=== PATIENT | male | born 1950 | race Caucasian/White ===

== ENCOUNTER → 2016-09-10 | Outpatient (CLI) | payer MEDICARE | END | disposition home or self-care (01) | LOC: PCVCCLINIC 13:00 | PROVIDERS: ATTEND Internal Medicine Cardiovascular Disease | DX: I25.10 Atherosclerotic heart disease of native coronary artery without angina pectoris (principal); I42.9 Cardiomyopathy, unspecified; E78.00 Pure hypercholesterolemia, unspecified; I10 Essential (primary) hypertension; E11.9 Type 2 diabetes mellitus without complications; I45.10 Unspecified right bundle-branch block; Z95.1 Presence of aortocoronary bypass graft | CPT/HCPCS: 80061; 93005; G0463 ==

== ENCOUNTER → 2017-04-12 | Outpatient (CLI) | payer MEDICARE ==
[~2017-04-12] MED LIST: REGADENOSON 0.4 MG/5 ML DISP.SYRIN. IV ONE
--- NOTE | 2017-04-12 10:19 | PCVCIMAG ---
APPROVED REPORT Study performed: 04/12/2017 07:39:13 EXAM: Comprehensive 2D, Doppler, and color-flow Echocardiogram Patient Location: Echo lab Room #: 2Status: routine BSA: 2.06 HR: 52 bpmBP: 116/66 mmHg Rhythm: Bradycardia Other Information Study Quality: Good Risk Factors: Cardiac Risk Factors: HTN, Diabetes (insulin) Indications Diabetes Bradycardia Dyspnea CAD Cardiomyopathy HX Stents, FL 2D Dimensions LVEF(%): 44.79 (>50%) IVSd: 8.46 (7-11mm)LVOT Diam: 22.70 (18-24mm) LVDd: 60.73 mm PWd: 7.63 (7-11mm)Ascending Ao: 31.09 (22-36mm) LVDs: 46.97 (25-40mm) Left Atrium: 49.91 (27-40mm) Aortic Root: 26.06 mm LV Single Plane 4CH: 45.94 % LV Single Plane 2CH: 44.53 %Renae's LVEF: 45.24 % Biplane EF: 46.6 % Volumes Left Atrial Volume (Systole) Single Plane 4CH: 96.87 mLSingle Plane 2CH: 94.54 mL Biplane LA Volume: 101.00 mLLA ESV Index: 49.00 mL/m2 Aortic Valve AoV Peak Donta.: 1.37 m/s AO Peak Gr.: 7.56 mmHgLVOT Max P.15 mmHg LVOT Max V: 0.73 m/s ISELA Vmax: 2.16 cm2 AI Vmax: 3.65 m/s AI [place]: 2.01 m/s2 AI PHT: 528.43 ms Mitral Valve E/A Ratio: 5.9 MV E Max Donta.: 1.23 m/s MV A Donta.: 0.21 m/s MV PHT: 53.62 ms MVA (PHT): 4.10 cm2 IVRT: 73.82 ms TDI E/Lateral E': 11.18E/Medial E': 17.57 Medial E' Donta.: 0.07 m/s Lateral E' Donta.: 0.11 m/s Pulmonary Valve PV Peak Donta.: 0.92 m/sPV Peak Gr.: 3.36 mmHg Pulmonary Vein P Vein S: 0.23 m/sP Vein A: 0.20 m/s P Vein D: 1.06 m/sP Vein A Dur.: 115.3 msec P Vein S/D Ratio: 0.22 Tricuspid Valve TR Peak Donta.: 3.21 m/s TR Peak Gr.: 41.28 mmHg TV Vmax: 0.69 m/sPA Pressure: 51.00 mmHg Left Ventricle Left ventricle is mildly dilated. There is global hypokinesis of the left ventricle. Inferoseptal severe hypokinesis There is normal left ventricular wall thickness. Left ventricular systolic function is mildly decreased.Distal septum apex severly hypo LVEF is 45-50%. Grade IV - fixed restrictive diastolic dysfunction. Right Ventricle The right ventricle is normal size. The right ventricular systolic function is normal. Atria Left atrium is moderately dilated. The right atrium size is normal. Aortic Valve The aortic valve is normal in structure. Mild aortic regurgitation. There is no aortic valvular stenosis. Mitral Valve The mitral valve is normal in structure. Mild to moderate mitral regurgitation. No evidence of mitral valve stenosis. Tricuspid Valve The tricuspid valve is normal in structure. Moderate tricuspid regurgitation with a PA pressure of 51mmHg. Moderate pulmonary hypertension. Pulmonic Valve The pulmonary valve is normal in structure. There is no pulmonic valvular regurgitation. Great Vessels The aortic root is normal in size. The ascending aorta is normal in size. IVC is normal in size and collapses <50% with inspiration. Pericardium There is no pericardial effusion. There is no pleural effusion. <Conclusion> Left ventricle is mildly dilated. Left ventricular systolic function is mildly decreased.Distal septum apex severly hypo LVEF is 45-50%. Grade IV - fixed restrictive diastolic dysfunction. The right ventricle is normal size. Left atrium is moderately dilated. Mild aortic regurgitation. Mild to moderate mitral regurgitation. Moderate tricuspid regurgitation with a PA pressure of 51mmHg. Moderate pulmonary hypertension. There is no pericardial effusion.
--- NOTE | 2017-04-12 15:18 | PCVCIMAG ---
APPROVED REPORT Exam: Nuclear Stress Test Indication: CAD Patient Location: Out-Patient Stress Nurse: Pauline Henderson RN, Jess Gaspar RN [place] Tech:Zahraa Rita [employer] Ht: 5 ft 9 in Wt: 180 lbs BSA: 1.98 m2 HR: 55 bpm BP: 176/79 mmHg BMI: 26.5 Rhythm: Sinus Bradycardia, Bifascicular Block Medical History Medical History: HTN, Hyperlipidemia, Age, CAD, Diabetes Medications: Lasix, Lantus, Humalog, Losartan, Actos, Pravastatin, Propranolol (last dose 12 hours) Allergies: Lefazolin, Erythromycin, PCN Previous Cardiac Procedures: CABG Pretest Chest Pain Characteristics: No chest pain Exercise History: Indeterminate NM EXAM: Myocardial Perfusion REST/STRESS Imaging Protocol: Rest Tc-99m/Stress Tc-99m 1 day Resting Data Rest SPECT myocardial perfusion imaging was performed in supine position 45 minutes following the intravenous injection of 11.3 mCi of Tc-99m Sestamibi. Time of rest injection: 829 Date: 04/12/2017 Administration Route: IV Administration Site: Right AC Pharmacologic Stress Pharmacologic stress test was performed by injecting Regadenoson 0.4 mg IV push followed by the intravenous injection of 35.5 mCi of Tc-99m Sestamibi. Time of stress injection: 949 Date: 04/12/2017 Administration Route: IV Administration Site: Right AC Gated Stress SPECT was performed 45 minutes after stress injection. The images were gated to evaluate regional wall motion and calculate left ventricular ejection fraction. Study Quality Study: Good Study Data Post stress, the left ventricular ejection was 48%.. SSS: 19 SRS: 19 SDS: 1 TID = 1.07. 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 Wall Motion There is a medium area of akinesis in the entire segment of the inferoseptal wall which is seen on the stress images as well as the resting images. 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 Post stress, the left ventricular ejection was 48%.. No change since prior study dated February 2013. Interpreted by: Ross Valencia MD Electronically Approved: 04/12/2017 14:28:53 Stress Test Details Stress Test: Pharmacologic stress testing performed using 0.4 mg of regadenoson per 5 mL given IV over 10 seconds. HR Resting HR: 55 bpmMax Heart Rate (APMHR): 154 bpm Max HR Achieved: 61 bpmTarget HR (85% APMHR): 130 bpm % of APMHR: 39 Recovery HR: 61 bpm BP Resting BP: 176/79 mmHg Max BP: 138/63 mmHg ECG Resting ECG: SB, RBBB, Bifascicular Block Stress ECG: SB, RBBB, Bifascicular Block Recovery ECG: SB, RBBB, Bifascicular Block Clinical Reason for Termination: Completed protocol Stress Symptoms: Momentary throat discomfort Exercise duration: 0 min 55 sec Exercise capacity: 1.0 METs Symptoms resolved during recovery. Stress ECG Conclusion ECG: Non-ischemic <Conclusion> ECG: Non-ischemic
== END | disposition home or self-care (01) ==
LOC: PCVCIMAG 07:28
PROVIDERS: ATTEND Internal Medicine Cardiovascular Disease
DX: I08.8 Other rheumatic multiple valve diseases (principal); I10 Essential (primary) hypertension; R06.02 Shortness of breath; I25.10 Atherosclerotic heart disease of native coronary artery without angina pectoris; R00.1 Bradycardia, unspecified; I42.9 Cardiomyopathy, unspecified; I25.2 Old myocardial infarction; I45.2 Bifascicular block; E11.9 Type 2 diabetes mellitus without complications; R60.9 Edema, unspecified; Z95.1 Presence of aortocoronary bypass graft
CPT/HCPCS: 78452; 93017; 93306; A9500; J2785

== ENCOUNTER → 2017-11-22 | Outpatient (CLI) | payer MEDICARE | END | disposition home or self-care (01) | LOC: PCVCCLINIC 15:09 | DX: I25.10 Atherosclerotic heart disease of native coronary artery without angina pectoris (principal); I25.5 Ischemic cardiomyopathy; R29.898 Other symptoms and signs involving the musculoskeletal system; I10 Essential (primary) hypertension; E78.00 Pure hypercholesterolemia, unspecified; R94.31 Abnormal electrocardiogram [ECG] [EKG]; Z91.81 History of falling; Z87.891 Personal history of nicotine dependence; Z79.899 Other long term (current) drug therapy; Z79.4 Long term (current) use of insulin | CPT/HCPCS: 80061; 93005; G0463 ==

== ENCOUNTER → 2018-07-31 | Outpatient (CLI) | payer MEDICARE | END | disposition home or self-care (01) | LOC: PCVCCLINIC 15:00 | PROVIDERS: ATTEND Internal Medicine Cardiovascular Disease | DX: I25.10 Atherosclerotic heart disease of native coronary artery without angina pectoris (principal); I42.9 Cardiomyopathy, unspecified; I10 Essential (primary) hypertension; E78.00 Pure hypercholesterolemia, unspecified; E11.9 Type 2 diabetes mellitus without complications; I45.10 Unspecified right bundle-branch block; Z79.4 Long term (current) use of insulin; Z88.1 Allergy status to other antibiotic agents; Z88.0 Allergy status to penicillin | CPT/HCPCS: 36415; 80061; 93005; G0463 ==

== ENCOUNTER → 2019-03-26 | Outpatient (CLI) | payer MEDICARE ==
--- NOTE | 2019-03-26 14:55 | PCVCIMAG ---
APPROVED REPORT Study performed: 03/26/2019 13:19:29 EXAM: Comprehensive 2D, Doppler, and color-flow Echocardiogram Patient Location: Echo lab Status: routine BSA: 2.06 HR: 72 bpmBP: 100/60 mmHg Rhythm: NSR Other Information Study Quality: Good Risk Factors: Cardiac Risk Factors: HTN, Hyperlipidemia, DM Indications CAD Cardiomyopathy CABG 2D Dimensions IVSd: 15.95 (7-11mm)LVOT Diam: 22.79 (18-24mm) LVDd: 40.42 mm PWd: 15.82 (7-11mm)Ascending Ao: 29.66 (22-36mm) LVDs: 34.49 (25-40mm) Left Atrium: 42.81 (27-40mm) Aortic Root: 24.65 mm LV Single Plane 4CH: 50.02 % LV Single Plane 2CH: 28.91 % Biplane EF: 40.0 % Volumes Left Atrial Volume (Systole) Single Plane 4CH: 61.23 mLSingle Plane 2CH: 63.32 mL LA ESV Index: 31.00 mL/m2 Aortic Valve AoV Peak Donta.: 1.33 m/s AO Peak Gr.: 7.10 mmHgLVOT Max P.58 mmHg LVOT Max V: 0.95 m/s ISELA Vmax: 2.90 cm2 Mitral Valve E/A Ratio: 1.2 MV Decel. Time: 226.94 ms MV E Max Donta.: 1.08 m/s MV A Donta.: 0.90 m/s IVRT: 131.49 ms TDI E/Lateral E': 10.80E/Medial E': 27.00 Medial E' Donta.: 0.04 m/s Lateral E' Donta.: 0.10 m/s Pulmonary Valve PV Peak Gr.: 3.22 mmHg Pulmonary Vein P Vein S: 0.58 m/sP Vein A: 0.44 m/s P Vein D: 0.55 m/sP Vein A Dur.: 100.3 msec P Vein S/D Ratio: 1.05 Left Ventricle The left ventricle is normal size. Apical hypokinesis consistent with old myocardial infarct. There is normal left ventricular wall thickness. Left ventricular systolic function is mildly decreased. LVEF is 45-50%. Right Ventricle The right ventricle is normal size. The right ventricular systolic function is normal. Atria The left atrium size is normal. The right atrium size is normal. Aortic Valve The aortic valve is normal in structure. Trace aortic regurgitation. There is no aortic valvular stenosis. Mitral Valve The mitral valve is normal in structure. Trace mitral regurgitation. No evidence of mitral valve stenosis. Tricuspid Valve The tricuspid valve is normal in structure. Trace tricuspid regurgitation. Pulmonic Valve The pulmonary valve is normal in structure. There is no pulmonic valvular regurgitation. Great Vessels The aortic root is normal in size. IVC is normal in size and collapses >50% with inspiration. Pericardium There is no pericardial effusion. <Conclusion> The left ventricle is normal size. Left ventricular systolic function is mildly decreased. LVEF is 45-50%. The right ventricle is normal size. The left atrium size is normal. Trace aortic regurgitation. Trace mitral regurgitation. Trace tricuspid regurgitation. The aortic root is normal in size. There is no pericardial effusion.
== END | disposition home or self-care (01) ==
LOC: PCVCIMAG 12:56
PROVIDERS: ATTEND Internal Medicine Cardiovascular Disease
DX: I25.10 Atherosclerotic heart disease of native coronary artery without angina pectoris (principal); I42.9 Cardiomyopathy, unspecified; E78.00 Pure hypercholesterolemia, unspecified; E11.9 Type 2 diabetes mellitus without complications; I45.10 Unspecified right bundle-branch block; I25.5 Ischemic cardiomyopathy; I10 Essential (primary) hypertension; I38 Endocarditis, valve unspecified; Z87.891 Personal history of nicotine dependence
CPT/HCPCS: 36415; 80061; 93005; 93306; G0463

== ENCOUNTER → 2019-05-10 | Outpatient (CLI) | payer MEDICARE ==
--- NOTE | 2019-05-11 15:55 | PCVCIMAG ---
APPROVED REPORT Imaging Protocol: Rest Tc-99m/Stress Tc-99m 1 day Study performed: 05/10/2019 09:07:57 Indication: CM, CAD, Pre-Op Patient Location: Out-Patient Stress Nurse: Jess Gaspar RN MA Tech:Pedro Pablo Kermit [facility] Ht: 5 ft 9 in Wt: 198 lbs BSA: 2.06 m2 HR: 57 bpm BMI: 29.2 Rhythm: Sinus Bradycardia, Right Bundle Branch Block, Bifasicular Block, Left Ventricular Hypertrophy Medical History Medical History: CABG 2013, Age, CVD, CAD, Former Smoker, RBBB Medications: Coreg, Pravastatin, Aldactone, Losartan Allergies: Many, none that interfere with testing Resting Data Rest SPECT myocardial perfusion imaging was performed in supine position 45 minutes following the intravenous injection of 10.7 mCi of Tc-99m Sestamibi. Time of rest injection: 09 Date: 05/10/2019 Administration Route: IV Administration Site: Right Arm Pharmacologic Stress Pharmacologic stress test was performed by injecting Regadenoson 0.4 mg IV push over 10-15 seconds immediately followed by the intravenous injection of 32.5 mCi of Tc-99m Sestamibi. Time of stress injection: 1040 Date: 05/10/2019 Administration Route: IV Administration Site: Right Arm Gated Stress SPECT was performed 45 minutes after stress injection. The images were gated to evaluate regional wall motion and calculate left ventricular ejection fraction. Stress Test Details Stress Test: Pharmacologic stress testing performed using 0.4 mg of regadenoson per 5 mL given IV over 10 seconds. Reason for pharmacologic stress test: Parkinsons. HRMax Heart Rate (APMHR): 152 bpm Resting HR: 57 bpmTarget HR (85% APMHR): 129 bpm Max HR Achieved: 72 bpm % of APMHR: 47 Recovery HR: 62 bpm BP Resting BP: 137/60 mmHg Max BP: 163/61 mmHg Recovery BP: 116/54 mmHg ECG Resting ECG: Sinus Bradycardia, Right Bundle Branch Block, Bifasicular Block, Left Ventricular Hypertrophy Stress ECG: Sinus Rhythm, Right Bundle Branch Block, Bifasicular Block, Left Ventricular Hypertrophy Arrhythmia: VPC's Recovery ECG: Sinus Rhythm, Right Bundle Branch Block, Bifasicular Block, Left Ventricular Hypertrophy Clinical Reason for Termination: Completed protocol Stress Symptoms: Nausea Symptoms resolved during recovery. Stress ECG Conclusion ECG: Non-ischemic Study Data Post stress, the left ventricular ejection was 60%.. SSS: 21 SRS: 17 SDS: 4 TID = 1.19. Perfusion Old complete infarct involving the inferoseptal wall and apex of the left ventricle with mild mirta-infarct ischemia. Nuclear Conclusion Old complete infarct involving the inferoseptal wall and apex of the left ventricle with mild mirta-infarct ischemia. Post stress, the left ventricular ejection was 60%. No change since prior study dated March 2017. Interpreted by: Ross Valencia MD Electronically Approved: 05/10/2019 12:32:50 <Conclusion> ECG: Non-ischemic
== END | disposition home or self-care (01) ==
LOC: PCVCIMAG 09:11
PROVIDERS: ATTEND Internal Medicine Cardiovascular Disease
DX: Z01.818 Encounter for other preprocedural examination (principal); I45.10 Unspecified right bundle-branch block; I25.10 Atherosclerotic heart disease of native coronary artery without angina pectoris; I10 Essential (primary) hypertension; I42.9 Cardiomyopathy, unspecified; Z87.891 Personal history of nicotine dependence; Z88.1 Allergy status to other antibiotic agents
CPT/HCPCS: 78452; 93017; A9500; J2785